=== PATIENT | female | born 1980 | race Caucasian/White ===

== ENCOUNTER 2019-09-13 07:54 | Emergency (ER) | payer OTHER ==
[~2019-09-13] VITALS: Ht 157.5 cm; Wt 77.1 kg
[~2019-09-13 07:54] MED LIST: ACET325 PO; ASPI325EC PO; ATEN100 PO; Aspir-Trin325 MG PO; Bactrim Ds Tab1 EACH PO; CEPH500 PO; CITA20 PO; Cipro500 MG PO; Floxin10 ML LEFTEAR; HYDACE10B PO; HYDR1TAB94 PO; METO100ER PO; METO25 PO; METO25ER PO; METO50ER PO; NEBI10 PO; OXYC5; RXONDA4ODT MM; Tamiflu75 MG PO
[2019-09-13] MEDS ORDERED: Veetids 500500 MG PO (08:55)
== END 2019-09-13 09:04 | disposition home or self-care (01) ==
LOC: ER 07:54
DX: K04.7 Periapical abscess without sinus (principal); F17.200 Nicotine dependence, unspecified, uncomplicated; Z88.0 Allergy status to penicillin; Z88.8 Allergy status to other drugs, medicaments and biological substances
CPT/HCPCS: 99282

== ENCOUNTER 2022-02-13 00:09 | Emergency (ER) | payer OTHER ==
[~2022-02-13] VITALS: Ht 160 cm; Wt 68.0 kg
[~2022-02-13 00:09] MED LIST changes: +Veetids 500500 MG PO
== END 2022-02-13 01:18 | disposition home or self-care (01) ==
LOC: ER 00:09
DX: Z03.823 Encounter for observation for suspected inserted (injected) foreign body ruled out (principal); F17.210 Nicotine dependence, cigarettes, uncomplicated; Z88.0 Allergy status to penicillin; Z88.1 Allergy status to other antibiotic agents
CPT/HCPCS: 99282

== ENCOUNTER 2022-04-20 01:45 | Emergency (ER) | payer OTHER ==
[~2022-04-20] VITALS: Ht 157.5 cm; Wt 74.8 kg
[2022-04-20] MEDS ORDERED: SILVADENE TOP (04:35)
[2022-04-20] MEDS ORDERED: MORP15ER PO (04:37)
[2022-04-20] MEDS ORDERED: MORPHINE SULFAT15 M1 PO (09:16)
== END 2022-04-20 04:48 | disposition home or self-care (01) ==
LOC: ER 01:45
DX: T21.25XA Burn of second degree of buttock, initial encounter (principal); T22.20XA Burn of second degree of shoulder and upper limb, except wrist and hand, unspecified site, initial encounter; T31.0 Burns involving less than 10% of body surface; Z88.0 Allergy status to penicillin; Z88.8 Allergy status to other drugs, medicaments and biological substances; F17.210 Nicotine dependence, cigarettes, uncomplicated
CPT/HCPCS: 16025; 90471; 90714; 96374-59; 99284-25; A9270; J2270; J3010; J7030

== ENCOUNTER 2023-05-14 17:38 | Emergency (ER) | payer OTHER ==
[~2023-05-14] VITALS: Ht 160 cm; Wt 74.8 kg
[~2023-05-14 17:38] MED LIST changes: +MORP15ER PO; +MORPHINE SULFAT15 M1 PO; +SILVADENE TOP
[2023-05-14 17:56] VITALS: BP 133/89
== END 2023-05-14 20:30 | disposition home or self-care (01) ==
LOC: ER 17:38
DX: H60.92 Unspecified otitis externa, left ear (principal); F17.200 Nicotine dependence, unspecified, uncomplicated; Z88.0 Allergy status to penicillin; Z88.8 Allergy status to other drugs, medicaments and biological substances
CPT/HCPCS: 99282; A9270

== ENCOUNTER 2023-11-01 00:28 | Emergency (ER) | payer OTHER ==
[~2023-11-01] VITALS: Ht 160 cm; Wt 77.1 kg
[2023-11-01] MEDS ORDERED: Aspir 8181 MG PO (00:34)
[2023-11-01 01:14] LABS: Albumin, Blood 3.1 g/dL (3.4-5.0); Albumin/Globulin Ratio 1.1 (0.8-1.8); Bilirubin, Total 0.5 mg/dL (0.1-1.0); Bun/Creatinine Ratio 38.7 (12.0-20.0); Calcium, Blood 7.5 mg/dL (8.5-10.1); Creatinine, Blood 0.67 mg/dL (0.40-1.00); Globulin, Blood 2.9 g/dL (2.2-4.0); Potassium, Blood 3.9 mmol/L (3.5-5.5)
[2023-11-01 01:31] VITALS: BP 148/110
[2023-11-01 01:52] LABS: BASOPHILS ABSOLUTE AUTO 0.04 K/mm3 (0.00-0.23); BASOPHILS PERCENT AUTO 0 % (0-2); EOSINOPHILS ABSOLUTE AUTO 0.14 K/mm3 (0.00-0.68); EOSINOPHILS PERCENT AUTO 1 % (0-6); Hemoglobin 13.4 g/dL (11.5-16.0); IMMATURE GRAN ABSOLUTE AUTO 0.09 K/mm3 (0.00-0.10); IMMATURE GRAN PERCENT AUTO 1 % (0-1); LYMPHOCYTES ABSOLUTE AUTO 1.63 K/mm3 (0.84-5.20); LYMPHOCYTES PERCENT AUTO 16 % (21-46); MONOCYTES ABSOLUTE AUTO 0.54 K/mm3 (0.16-1.47); MONOCYTES PERCENT AUTO 5 % (4-13); Mean Corpuscular HGB 29.4 pg (26.0-34.0); Mean Corpuscular HGB Conc 32.7 g/dL (31.5-36.5); Mean Corpuscular Volume 90 fL (80-100); Mean Platelet Volume 10.2 fL (9.1-12.4); NEUTROPHILS ABSOLUTE AUTO 7.56 K/mm3 (1.96-9.15); NEUTROPHILS PERCENT AUTO 76 % (41-73); Platelet Count 319 K/mm3 (150-400); RDW Coefficient Variation 13.4 % (11.7-14.2); RDW Standard Deviation 43.8 fL (35.1-46.3); Red Blood Cell Count 4.56 M/mm3 (3.80-5.20)
== END 2023-11-01 02:46 | disposition left against medical advice (07) ==
LOC: ER 00:28
PROVIDERS: Emergency Medicine
DX: R07.9 Chest pain, unspecified (principal); R06.02 Shortness of breath; Z95.810 Presence of automatic (implantable) cardiac defibrillator; Z86.79 Personal history of other diseases of the circulatory system; Z79.82 Long term (current) use of aspirin; Z88.0 Allergy status to penicillin
CPT/HCPCS: 36415; 71045; 80053; 83880; 84484; 85025; 93005; 93010; 99285-25

== ENCOUNTER 2023-12-25 22:31 | Emergency (ER) | payer OTHER ==
[~2023-12-25] VITALS: Ht 160 cm; Wt 77.1 kg
[~2023-12-25 22:31] MED LIST changes: +Aspir 8181 MG PO
[2023-12-25 23:08] VITALS: BP 114/80
[2023-12-25 23:54] LABS: Influenza B, PCR NEGATIVE (NEGATIVE); Resp Syncytial Virus, PCR NEGATIVE (NEGATIVE); SARS-Cov-2 (COVID-19) PCR, MMC NEGATIVE (NEGATIVE)
[2023-12-26 00:03] LABS: Influenza A, PCR POSITIVE (NEGATIVE)
[2023-12-26] MEDS ORDERED: IBU600 MG PO (00:08)
== END 2023-12-26 00:19 | disposition home or self-care (01) ==
LOC: ER 22:31
PROVIDERS: Student in an Organized Health Care Education/Training Program
DX: J10.1 Influenza due to other identified influenza virus with other respiratory manifestations (principal); Z88.0 Allergy status to penicillin; Z88.8 Allergy status to other drugs, medicaments and biological substances; Z79.82 Long term (current) use of aspirin; F17.200 Nicotine dependence, unspecified, uncomplicated
CPT/HCPCS: 0241U; 71046; 99283-25

== ENCOUNTER 2024-08-07 15:06 | Emergency (ER) | payer OTHER ==
[~2024-08-07] VITALS: Ht 157.5 cm; Wt 72.6 kg
[~2024-08-07 15:06] MED LIST changes: +IBU600 MG PO
[2024-08-07 15:17] VITALS: BP 140/101
== END 2024-08-07 16:40 | disposition home or self-care (01) ==
LOC: ER 15:06
DX: S01.81XA Laceration without foreign body of other part of head, initial encounter (principal); W22.8XXA Striking against or struck by other objects, initial encounter
CPT/HCPCS: 12011; 99283-25